=== PATIENT | female | born 1965 | race Caucasian/White ===

== ENCOUNTER 2019-06-11 17:58 | Emergency (ER) | payer OTHER, SELFPAY ==
--- NOTE | ~2019-06-11 | CT_ITS ---
EXAMINATION: CT abdomen pelvis wo con DATE: 06/11/2019 18:45 INDICATION: Diarrhea with left lower quadrant pain TECHNIQUE: Computed tomography (CT) of the abdomen and pelvis was performed without intravenous contr ast. The dose-length product (DLP) was 1684.97 mGy-cm. Automated exposure control and iterative recon struction technique were employed. COMPARISON: None FINDINGS: The lung bases are clear. The heart size is normal. There is a small pericardial effusion. Within the limitations of noncontrast examination, the liver, spleen, pancreas, gallbladder, and adre nal glands are normal. The kidneys are unremarkable. No pathologically enlarged abdominal or pelvic l ymph nodes are identified. There is no free intraperitoneal gas or evidence of bowel obstruction. The re is calcified atherosclerosis of the aorta and many of the other arteries. The appendix is normal. IMPRESSION: 1. No CT correlate for the patient's symptoms. Reviewed, dictated and finalized at location A. [facility]
[2019-06-11 18:17] VITALS: BP 174/104; PULSE 119; RESP 14; TEMP 37.1; O2SAT 100
[2019-06-11] MEDS: ONDANSETRON INJ 4 MG/2 ML VIAL IV PUSH (18:36)
[2019-06-11] MEDS: SODIUM CHLORIDE 0.9% IV 1,000 ML 999 ML IV CONT (18:36)
--- NOTE | 2019-06-11 18:40 | ED.NAVMDI ---
HPI - Nausea/Vomiting/Diarrhea General Chief complaint: Nausea/Vomiting/Diarrhea Stated complaint: N/V/D x 1 month Time Seen by Provider: 06/11/19 18:16 History of Present Illness HPI Narrative: Patient is a 54-year-old female who presents the ER with nausea/vomiting/diarrhea ongoing for 3 weeks. Patient has history of diabetes and CKD. She also has IBS for which she sees Dr. Hooys. No inflammatory bowel disease, no history of diverticulitis. Reports 2 loose stools today and persistent vomiting/retching throughout the day. No aggravating or alleviating factors. Denies fever/chills/sweats. She has not had any dark black stools or gross blood from her rectum. Related Data Allergies Allergy/AdvReac Type Severity Reaction Status Date / Time Bleach (Sodium Hypochlorite) Allergy Rash Verified 06/11/19 18:22 latex Allergy Rash Verified 06/11/19 18:22 Review of Systems Review of Systems: All systems reviewed & are unremarkable except as noted in HPI and below Constitutional: Constitutional: Denies chills, Denies fever(s) and Denies weakness Cardiovascular: Cardiovascular: Denies chest pain and Denies radiating jaw, neck or arm pain Respiratory: Respiratory: Denies cough, Denies dyspnea and Denies wheezing Gastrointestinal: Gastrointestinal: Reports abdominal pain, Denies constipation, Reports diarrhea, Reports nausea and Reports vomiting Genitourinary: Genitourinary: Denies hematuria, Denies nocturia and Denies dysuria PMFSH Past Medical History Medical History (Updated 06/11/19 @ 20:11 by Ori Payne MD) Chronic kidney disease, stage IV (severe) Diabetes type 2, controlled IBS (irritable bowel syndrome) Surgical History Surgical History (Updated 06/11/19 @ 18:43 by Ori Payne MD) No pertinent past surgical history Social History Social History Gender identity (if verbalized by the patient): Female Exam Narrative: Exam Narrative: GENERAL: Uncomfortable appearing, morbidly obese, retching. HEAD: Normocephalic, atraumatic. ENT: Mucous membranes moist. No pharyngeal erythema or tonsillar exudate. CHEST: Clear to auscultation. No respiratory distress. HEART: Tachycardic and regular. Normal peripheral pulses. ABDOMEN: Soft, mildly tender to left lower quadrant without guarding, nondistended. EXTREMITIES: Normal range of motion. No edema. NEURO: Alert and oriented x3. PSYCH: Normal mood and affect. Course Course Emergency Course: Patient no longer retching, requesting a flu swab. D/c with phenergan. Will give a dose before d/c as she still has some mild nausea. Vital Signs Vital signs: Vital Signs Temperature 98.7 F 06/11/19 18:17 Pulse Rate 119 H 06/11/19 18:17 Respiratory Rate 14 06/11/19 18:17 Blood Pressure 174/104 H 06/11/19 18:17 Pulse Oximetry 100 06/11/19 18:17 Temperature 99.2 F 06/11/19 19:31 Pulse Rate 103 H 06/11/19 19:49 Respiratory Rate 18 06/11/19 19:49 Blood Pressure 181/99 H 06/11/19 19:49 Pulse Oximetry 100 06/11/19 19:49 MDM - Nausea/Vomiting/Diarrhea Lab Data Result diagrams: 06/11/19 18:34 06/11/19 18:34 Labs: Lab Results 06/11/19 06/11/19 Range/Units 18:34 18:34 WBC 11.5 H (4.5-10.0) K/mm3 RBC 4.40 (4.2-5.4) M/mm3 Hgb 13.7 (12.0-15.0) g/dL Hct 40.9 (37.0-47.0) % MCV 93.0 (80-100) fl MCH 31.1 (26-34) pg MCHC 33.5 (32-36) g/dl RDW 12.6 (11.5-14.5) % Plt Count 341 (150-375) k/mm3 MPV 9.7 (7.4-10.4) fl Immature Gran % (Auto) 0.4 (0-0.5) % Neut % (Auto) 85.0 H (45.5-73.1) % Lymph % (Auto) 9.3 L (18.3-44.2) % [place] % (Auto) 4.9 (2.6-8.5) % Eos % (Auto) 0.1 (0-4.4) % Baso % (Auto) 0.3 (0.2-1.2) % Lymph # (Auto) 1.07 (0.9-3.2) K/mm3 [place] # (Auto) 0.6 (0.1-0.6) K/mm3 Eos # (Auto) 0.0 (0-0.3) K/mm3 Baso # (Auto) 0.0 (0.0-0.1) K/mm3 Abs Immat Gran (auto) 0.05 H (0.00-0.031) K/mm3 Absolute Neuts (auto) 9.8 H
[2019-06-11 18:41] LABS: Basophils Percent Auto 0.3 % (0.2-1.2); Eosinophils Percent Auto 0.1 % (0-4.4); Hematocrit 40.9 % (37.0-47.0); Hemoglobin 13.7 g/dL (12.0-15.0); Immature Granulocyte Absolute 0.05 K/mm3 (0.00-0.031); Immature Granulocyte Percent A 0.4 % (0-0.5); Lymphocytes Absolute Auto 1.07 K/mm3 (0.9-3.2); Lymphocytes Percent Auto 9.3 % (18.3-44.2); Mean Corpuscular HGB Conc 33.5 g/dl (32-36); Mean Corpuscular Hemoglobin 31.1 pg (26-34); Mean Platelet Volume 9.7 fl (7.4-10.4); Monocytes Absolute Auto 0.6 K/mm3 (0.1-0.6); Monocytes Percent Auto 4.9 % (2.6-8.5); Neutrophils Absolute Auto 9.8 K/mm3 (1.3-6.7); Platelet Count Result 341 k/mm3 (150-375); Red Cell Distribution Width 12.6 % (11.5-14.5); White Blood Count 11.5 K/mm3 (4.5-10.0)
[2019-06-11 18:57] LABS: Albumin Level 3.7 g/dL (3.5-5.1); Alkaline Phosphatase 151 U/L (38-126); Aspartate Amino Transferase 33 U/L (14-36); Bilirubin,Total 1.1 mg/dL (0.2-1.3); Blood Urea Nitrogen 22 mg/dL (7-17); Calcium 9.2 mg/dL (8.4-10.2); Carbon Dioxide 26 mmol/L (22-30); Chloride 94 mmol/L (98-107); Estimated Glomerular Filt Rate 25; Glucose 278 mg/dL (65-105); Lipase 81 U/L (23-300); Potassium 3.6 mmol/L (3.4-5.0); Sodium 138 mmol/L (137-145)
[2019-06-11 19:00] LABS: Alanine Aminotransferase 26 U/L (4-35)
[2019-06-11 19:31] VITALS: BP 182/109; PULSE 101; RESP 20; TEMP 37.3; O2SAT 100
[2019-06-11 19:49] VITALS: BP 181/99; PULSE 103; RESP 18; O2SAT 100
[2019-06-11] MEDS: PROMETHAZINE HCL 25 MG/ML AMPUL 12.5 MG IV PUSH (20:09)
[2019-06-11] MEDS: ACETAMINOPHEN 500 MG TABLET 1000 MG PO (21:09)
[2019-06-11 21:10] VITALS: BP 143/93; PULSE 109; RESP 16; O2SAT 95
== END 2019-06-11 21:12 | disposition home or self-care (01) ==
PROVIDERS: Emergency Provider Emergency Medicine
DX: R11.2 Nausea with vomiting, unspecified (principal); K58.0 Irritable bowel syndrome with diarrhea; E11.22 Type 2 diabetes mellitus with diabetic chronic kidney disease; N18.4 Chronic kidney disease, stage 4 (severe)
CPT/HCPCS: 36415; 74176; 80053; 83690; 85025; 87804; 96361; 96374; 96375; 99284; A9270; J2405; J2550; J7030